=== PATIENT | female | born 1960 | race Caucasian/White ===

== ENCOUNTER 2018-10-08 08:55 | Outpatient (CLI) | payer OTHER, SELFPAY ==
[2018-10-08 09:25] LABS: HCT 43.4 % (36.0-46.0); HGB 14.3 g/dL (12.0-15.5); Mean Corp. HGB Concentration 32.9 g/dL (32.0-36.0); Mean Corpuscular Volume 93.9 fL (80-95); Mean Platelet Volume 10.4 fL (8.0-11.0); Platelet Count 265 x1000/uL (130-400); RBC 4.62 m/cumm (4.00-5.20); RBC Distribution Width 13.2 % (11.7-14.6); White Blood Cell Count 6.83 k/cumm (4.4-10.8)
[2018-10-08 10:22] LABS: ALT 46 U/L (12-78); AST 19 U/L (15-37); Albumin 3.5 g/dL (3.4-5.0); Alkaline Phosphatase 59 U/L (46-116); Anion Gap 8.7 mmol/L (3-11); BUN 19 mg/dL (7-18); Bilirubin, Total 0.3 mg/dL (0.2-1.0); CO2 29.3 mmol/L (21.0-32.0); CREATININE 0.76 mg/dL (0.55-1.02); Calcium 9.1 mg/dL (8.5-10.1); Chloride 105 mmol/L (98-107); Cholesterol 192 mg/dL (50-200); Glucose 91 mg/dL (70-100); HDL Cholesterol 47 mg/dL (40-60); LDL CHOLESTEROL 127 mg/dL (<100); Potassium 4.2 mmol/L (3.5-5.1); Sodium 143 mmol/L (136-145); TSH (W/Ref FT4) 1.36 uIU/mL (0.358-3.74); Total Protein 6.8 g/dL (6.4-8.2); Triglyceride 107 mg/dL (30-150)
== END 2018-10-08 09:15 ==
PROVIDERS: PCP Internal Medicine; Visit Provider Internal Medicine
DX: E03.9 Hypothyroidism, unspecified (principal)
CPT/HCPCS: 36415; 80053; 80061; 83721; 85027; 84443

== ENCOUNTER 2018-11-23 08:32 | Outpatient (CLI) | payer OTHER, SELFPAY ==
--- NOTE | 2018-11-23 08:32 | DI.RAD_ITS ---
SYMPTOMS/DIAGNOSIS: S/P BILATERAL TKA; LEFT SHOULDER PAIN RIGHT KNEE: Two views. Comparison is 05/09/16. There are again seen postsurgical changes of a right total knee replacement. The hardware shows no evidence of failure. The bones are intact. IMPRESSION: Stable right TKR. LEFT KNEE: Two views. Comparison is 05/09/16. There are stable changes of a left total knee replacement. No evidence of hardware failure is seen. The bones are intact. IMPRESSION: Stable left TKR. LEFT SHOULDER: Three views. No acute fracture or dislocation is seen. The glenohumeral joint appears well maintained. There are mild hypertrophic changes seen at the acromioclavicular joint and the greater tuberosity. The bones are intact. The soft tissues are unremarkable. IMPRESSION: Mild degenerative changes of the left shoulder.
== END 2018-11-23 08:52 ==
PROVIDERS: PCP Internal Medicine; Visit Provider Student in an Organized Health Care Education/Training Program
DX: M25.512 Pain in left shoulder (principal); M19.012 Primary osteoarthritis, left shoulder; Z96.653 Presence of artificial knee joint, bilateral
CPT/HCPCS: 73030; 73560

== ENCOUNTER 2019-04-22 09:13 | Outpatient (CLI) | payer OTHER, SELFPAY ==
[2019-04-22 11:00] LABS: TSH (W/Ref FT4) 1.34 uIU/mL (0.358-3.74)
== END 2019-04-22 09:33 ==
PROVIDERS: PCP Internal Medicine; Visit Provider Internal Medicine
DX: E03.9 Hypothyroidism, unspecified (principal); I10 Essential (primary) hypertension
CPT/HCPCS: 36415; 84443

== ENCOUNTER 2019-11-20 01:32 | Outpatient (CLI) | payer OTHER, SELFPAY ==
--- NOTE | 2019-11-20 08:15 | DI.MAMMO_ITS ---
EXAM: MG MAMMO SCREENING CLINICAL HISTORY: SCREENING, Z12.39. TECHNIQUE: Bilateral full field digital CC and MLO mammographic images were obtained with 3D tomosyn thesis and utilizing computer aided detection (CAD). COMPARISON: Available for comparison. FINDINGS: Masses/Architectural Distortion: None seen. Microcalcifications: No suspicious pleomorphic-type are seen. Skin Thickening/Nipple Retraction: None. IMPRESSION: 1. No significant interval change with no specific features of malignancy noted. 2. Unless there is more urgent need, screening mammography is recommended, as per [employer] guidelines. ACR BI-RAD Category- 1 Negative Breast Density - Category B - Scattered areas of fibroglandular density A negative radiographic report should not delay biopsy if a dominant or clinically suspicious mass is present. Up to ten percent of cancers are not identified on mammography. A negative report may reinforce clinical impression. Adenosis and dense breasts may obscure an underlying neoplasm. False positive reports average 6 to 10%. Patient will receive a letter notifying them of these results.
== END 2019-11-20 01:52 ==
PROVIDERS: PCP Internal Medicine; Visit Provider Internal Medicine
DX: Z12.31 Encounter for screening mammogram for malignant neoplasm of breast (principal)
CPT/HCPCS: 77063; 77067

== ENCOUNTER 2019-12-16 13:41 | Outpatient (CLI) | payer OTHER, SELFPAY ==
--- NOTE | 2019-12-16 08:00 | DI.RAD_ITS ---
EXAM: XR KNEE RT 2V AP,LAT INDICATION: s/p TKA. COMPARISON: XR knee RT 2V AP,lat from 11/23/2018 TECHNIQUE: 2D digital imaging was performed. FINDINGS: There are stable postsurgical changes of a right total knee replacement. There is no evidence of garth dware failure. The bones are intact. The soft tissues are unremarkable. IMPRESSION: Stable right TKR.
--- NOTE | 2019-12-16 08:00 | DI.RAD_ITS ---
EXAM: XR KNEE LT 2V AP,LAT INDICATION: f/u TKA. COMPARISON: XR knee LT 2V AP,lat from 11/23/2018 TECHNIQUE: 2D digital imaging was performed. FINDINGS: There are postsurgical changes again seen of a left total knee replacement. The orthopedic hardware appears stable. The bones are intact. The soft tissues are unremarkable. IMPRESSION: Stable left TKR.
== END 2019-12-16 14:01 ==
PROVIDERS: PCP Internal Medicine; Visit Provider Physician Assistant
DX: Z96.653 Presence of artificial knee joint, bilateral (principal); Z47.1 Aftercare following joint replacement surgery
CPT/HCPCS: 73560

== ENCOUNTER 2020-04-21 08:58 | Outpatient (REF) | payer OTHER, SELFPAY ==
[2020-04-21 17:28] LABS: CREATININE 0.97 mg/dL (0.55-1.02); Estimated GFR 58.38 (mL/min/1.73m2); Potassium 4.1 mmol/L (3.5-5.1); TSH 1.28 uIU/mL (0.36-3.74)
== END 2020-04-21 09:18 ==
LOC: LBN 08:58
PROVIDERS: PCP Nurse Practitioner; Visit Provider Nurse Practitioner
DX: I10 Essential (primary) hypertension (principal); E03.9 Hypothyroidism, unspecified
CPT/HCPCS: 82565; 84132; 84443

== ENCOUNTER 2020-06-09 07:48 | Outpatient (CLI) | payer OTHER, SELFPAY ==
[2020-06-10 14:37] LABS: COVID-19 RT-PCR Result NEGATIVE (Negative)
== END 2020-06-09 08:08 ==
PROVIDERS: PCP Nurse Practitioner; Visit Provider Surgery
DX: Z01.818 Encounter for other preprocedural examination (principal)
CPT/HCPCS: U0003

== ENCOUNTER 2020-06-12 06:58 | Day surgery (SDC) | payer OTHER, SELFPAY ==
[2020-06-12 07:17] VITALS: BP 139/82; PULSE 95; RESP 16; TEMP 36.3; O2SAT 93
[2020-06-12] MEDS: Lactated Ringers 1,000 ML 80 ML IV (07:39)
--- NOTE | 2020-06-12 07:55 | W.PM.DSUDISC ---
Discharge Plan Disposition Patient Disposition: HOME Condition: Good Discharge Details Reason For Visit: Colonoscopy Attending Provider: Reba Ramsey Primary Care Provider: Hayde Anthony Home Meds and New Rx's Prescriptions: Continued lisinopril 10 mg tablet 10 mg PO DAILY Qty: 90 RF: 4 hydrochlorothiazide 12.5 mg tablet 12.5 mg PO DAILY Qty: 90 RF: 4 fluticasone propionate 50 mcg/actuation spray,suspension 1 spray NS DAILY Qty: 3 RF: 3 fluoxetine 20 mg tablet 20 mg PO DAILY Qty: 90 RF: 3 CENTRUM TABLET 1 EACH tablet 1 ea PO DAILY RF: 0 amoxicillin 500 MG capsule 500 mg PO ONCE Qty: 4 RF: 1 melatonin 10 MG tablet 10 mg PO DAILY RF: 0 Fish Oil 1 EACH capsule 2 ea PO DAILY RF: 0 cholecalciferol (vitamin D3) [Vitamin D3] 2,000 UNIT capsule 4,000 unit PO DAILY RF: 0 metoprolol succinate 50 mg tablet extended release 24 hr 50 mg PO DAILY Qty: 90 RF: 3 levothyroxine 88 mcg tablet 88 mcg PO DAILY Qty: 90 RF: 4 acetaminophen [Tylenol] 325 MG tablet 650 mg PO Q4H PRN PRNRF: 0 Discharge Instructions Additional Instructions: Findings: Your colonoscopy was normal. Follow up: Plan for colonoscopy in 5 years due to history of polyps on prior colonoscopies. Please call if you develop: fevers >101.5 Nausea or Vomiting Abdominal pain that is not transient DAY SURGERY UNIT POST COLONOSCOPY INSTRUCTIONS 1. Because there will be medication in your system for the next 24 hours, you may feel a little sleepy. Your coordination will be affected. Therefore: a. Do not drive or operate dangerous equipment for 24 hours. b. Do not drink alcohol beverages for 24 hours (not even beer). c. Plan to go home and rest for the day. 2. Generally there are no restrictions on your activity after a day or so has gone by, but you may feel a bit fatigued for a few days. 3 After you arrive home you may have a light meal and return to a normal diet as you can tolerate it without feeling sick to your stomach. 4. After surgery, you may feel pain or discomfort. This should be only transient, but if it persists please contact your doctor. 5. If there are any questions regarding the findings of your procedure, please feel free to contact your doctor. 6. If you are unable to contact your doctor with a problem, contact the hospital at [phone]. 7. Continue all your regular medications unless directed otherwise. I understand the above instructions and have no questions. Signature of Patient or Responsible Adult Escort Date/Time Name of Responsible Adult Escort Signature of Nurse Date/Time Activity:: Activity as Tolerated Diet:: As Tolerated Discharge Orders Discharge Orders: Discharge Order (Routine); Ordered 06/12/20 Ordered By: Reba Ramsey DS: Diagnosis Discharge Diagnosis (1) History of colon polyps: Status: Acute
--- NOTE | 2020-06-12 07:56 | W.COLOREPORT ---
Date of service: 06/12/20 Time of Service: 08:41 Colonoscopy Report Date of procedure: 06/12/20 Pre-op diagnosis general: History of colon polyps Post-op diagnosis procedure note: other (Normal colon) Procedure: Colonoscopy Surgeon: Reba Ramsey Anesthesia proc note operative: MAC Indications: This 60 year old patient presents for routine colonoscopy. She had polyps removed in 2014 and 2009. No symptoms or FH colon cancer. Procedure Description: The patient was placed in the left Lang position. Propofol was titrated to sedation. Digital rectal examination revealed no abnormalities. The scope was advanced to the cecum without difficulty. The ileocecal valve and appendiceal orifice were clearly identified. The prep was good. The scope was slowly withdrawn over the course of greater than 6 minutes with no abnormalities seen in the ascending, transverse, descending, sigmoid colon or rectum including on retroflexed view. The patient tolerated the procedure well and was stable to recovery. Plan for routine screening colonoscopy in 5 years due to a history of polyps.
[2020-06-12 09:13] VITALS: BP 124/75; PULSE 71; RESP 16; TEMP 36.6; O2SAT 99
== END 2020-06-12 09:30 | disposition home or self-care (01) ==
PROVIDERS: PCP Nurse Practitioner; Visit Provider Surgery
PROC: 0DJD8ZZ Inspection of Lower Intestinal Tract, Via Natural or Artificial Opening Endoscopic (ICD-10-PCS; CPT 45378; principal; 2020-06-12 08:15)
DX: Z12.11 Encounter for screening for malignant neoplasm of colon (principal); Z86.010 Personal history of colon polyps
CPT/HCPCS: 45378

== ENCOUNTER 2020-11-24 02:33 | Outpatient (CLI) | payer OTHER, SELFPAY ==
--- NOTE | 2020-11-24 07:45 | DI.MAMMO_ITS ---
EXAM: MAMMO SCREENING CLINICAL HISTORY: screening,Z12.39 TECHNIQUE: Mammograms were interpreted according to the usual protocol including computer analysis w [employer] CAD system, tomosynthesis and C-view imaging. COMPARISON: 2010 through 2019 FINDINGS: The breasts are composed of scattered fibroglandular densities, Breast Density category B. No suspicious masses or suspicious microcalcifications are seen. No skin thickening or abnormal axillary lymph nodes are seen. There has been no significant change from prior exams. IMPRESSION: BI-RADS Category 1, Negative mammogram Yearly screening mammography is recommended. Breast Density - Category B, scattered fibroglandular densities. A negative radiographic report should not delay biopsy if a dominant or clinically suspicious mass is present. Up to ten percent of cancers are not identified on mammography. A negative report may reinforce clinical impression. Adenosis and dense breasts may obscure an underlying neoplasm. False positive reports average 6 to 10%. Patient will receive a letter notifying them of these results.
== END 2020-11-24 02:53 ==
PROVIDERS: PCP Nurse Practitioner; Visit Provider Nurse Practitioner
DX: Z12.31 Encounter for screening mammogram for malignant neoplasm of breast (principal)
CPT/HCPCS: 77063; 77067

== ENCOUNTER 2021-11-25 02:37 | Outpatient (CLI) | payer OTHER, SELFPAY ==
--- NOTE | 2021-11-25 11:10 | DI.MAMMO_ITS ---
Exam(s) MAMMO SCREENING EXAM: MAMMO SCREENING CLINICAL HISTORY: screening,Z12.39 TECHNIQUE: Bilateral full field digital CC and MLO mammographic images were obtained with 3D tomosyn thesis and utilizing computer aided detection (CAD). COMPARISON: Available for comparison. FINDINGS: Masses/Architectural Distortion: None seen. There are few stable nodular densities in the breasts. Microcalcifications: No suspicious pleomorphic-type are seen. Skin Thickening/Nipple Retraction: None. IMPRESSION: 1. No significant interval change with no specific features of malignancy noted. 2. Unless there is more urgent need, screening mammography is recommended, as per [employer] guidelines. BI-RADS Category 1 - Negative Breast Density - Category B - Scattered areas of fibroglandular density Breast density category C or D implies that the patient has dense breast tissue. Dense breast tissue is very common and is not abnormal but dense breast tissue can make it harder to find cancer on a ma mmogram. Also, dense breast tissue may increase their breast cancer risk. This information about the result of the mammogram report was provided to the patient to raise their awareness. Use this report when you speak with the patient about their risks for breast cancer, which includes their family hist ory. At that time, you may recommend for more screening tests (Ultrasound or MRI) as they might be us eful based on their risk. A negative radiographic report should not delay biopsy if a dominant or clinically suspicious mass is present. Up to ten percent of cancers are not identified on mammography. A negative report may reinforce clinical impression. Adenosis and dense breasts may obscure an underlying neoplasm. False positive reports average 6 to 10%. Patient will receive a letter notifying them of these results.
== END 2021-11-25 02:57 ==
PROVIDERS: PCP Nurse Practitioner; Visit Provider Nurse Practitioner
DX: Z12.31 Encounter for screening mammogram for malignant neoplasm of breast (principal)
CPT/HCPCS: 77063; 77067

== ENCOUNTER 2022-04-05 01:38 | Outpatient (CLI) | payer OTHER, SELFPAY ==
[2022-04-05 08:56] LABS: Hemoglobin A1C 5.6 % (<5.7)
[2022-04-05 10:20] LABS: Anion Gap 7.2 mmol/L (3-11); BUN 22 mg/dL (7-18); CO2 30.8 mmol/L (21.0-32.0); CREATININE 0.7 mg/dL (0.55-1.02); Calcium 9.1 mg/dL (8.5-10.1); Calculated LDL 155 mg/dL (<100); Chloride 104 mmol/L (98-107); Cholesterol 220 mg/dL (<200); Glucose 102 mg/dL (74-106); HDL Cholesterol 54 mg/dL (40-60); Potassium 4.5 mmol/L (3.5-5.1); Sodium 142 mmol/L (136-145); TSH (W/Ref FT4) 2.34 uIU/mL (0.36-3.74); Triglyceride 58 mg/dL (<150)
== END 2022-04-05 01:39 | disposition home or self-care (01) ==
LOC: LBO 01:38
PROVIDERS: PCP Nurse Practitioner; Visit Provider Nurse Practitioner
DX: I10 Essential (primary) hypertension (principal); E03.9 Hypothyroidism, unspecified; Z13.6 Encounter for screening for cardiovascular disorders; Z13.1 Encounter for screening for diabetes mellitus
CPT/HCPCS: 36415; 80048; 80061; 83036; 84443

== ENCOUNTER 2022-11-22 15:51 | Outpatient (REF) | payer OTHER, SELFPAY ==
--- NOTE | 2022-11-22 15:17 | PAPFT_PTH ---
PATIENT: Oumou Schulz LOC: [place] U#:[id number] AGE/SX: 62/F ROOM: RE11/22/[address]: Maria Esther Vaca MD : 1960 BED: DIS: 11/22/2022 SPEC #: [id number] RECD: 11/22/22 18:10 STATUS: FAM REViji #: [id number] RICKY: 11/22/22 15:[address]: Maria Esther Vaca DEPT: [facility] Cytology RECD BY: Sonia Ritter ENTERED: 11/22/22 18:11 SP TYPE: PAPFT OTHR DR: Rosio Menezes, MANAGER BUSINESS Tissues: 1 - CX/ENDOCX FOR PAP SMEARS Procedures: PAP THIN PREP/UVM Screening HPV DNA PROBE Comments: [id number]
== END 2022-11-22 15:52 | disposition home or self-care (01) ==
LOC: LBN 15:51
PROVIDERS: PCP Nurse Practitioner Family; Visit Provider Obstetrics & Gynecology
DX: Z12.4 Encounter for screening for malignant neoplasm of cervix (principal); Z11.51 Encounter for screening for human papillomavirus (HPV)
CPT/HCPCS: 88142; 87624

== ENCOUNTER 2022-12-06 02:43 | Outpatient (CLI) | payer OTHER, SELFPAY ==
--- NOTE | 2022-12-06 07:30 | DI.MAMMO_ITS ---
Exam(s) MAMMO SCREENING EXAM: MAMMO SCREENING CLINICAL HISTORY: screening,z12.39. TECHNIQUE: Bilateral full field digital CC and MLO mammographic images were obtained with 3D tomosyn thesis and utilizing computer aided detection (CAD). COMPARISON: Prior mammograms were reviewed. FINDINGS: There has been no significant change in the appearance and distribution of the fibroglandular tissue. No new significant findings in the right breast. The left breast there is an oval noncalcified well-defined nodule on the MLO view located approximate ly 10 cm in from the nipple, measuring 5 x 4 millimeters, more prominent than on prior studies. Spot compression and ultrasound recommended. There are no malignant-appearing microcalcification groups in this region or elsewhere in either [address]. There is no significant architectural distortion nor skin thickening-retraction. IMPRESSION: 1. No radiographic evidence of malignancy in the right breast. 2. Breast asymmetric density-possible nodule. Spot compression MLO view and ultrasound recommended. BI-RADS Category 0 - Assessment Incomplete: Need additional imaging evaluation Breast Density - Category B - Scattered areas of fibroglandular density Breast density Category C or D implies that the patient has dense breast tissue. Dense breast tissue can make it harder to find cancer on a mammogram. Dense breast tissue is also associated with an incr eased risk of breast cancer. This information about the result of the mammogram report was provided to the patient to raise their awareness. Use this report when you speak with the patient about their risks for breast cancer, which includes their family history. At that time, you may recommend additional screening tests (Ultrasoun d or MRI) as these tests may add significant information. A negative radiographic report should not delay biopsy if a dominant or clinically suspicious mass is present. Up to ten percent of cancers are not identified on mammography. A negative report may reinforce clinical impression. Adenosis and dense breasts may obscure an underlying neoplasm. False positive reports average 6 to 10%. Patient will receive a letter notifying them of these results.
== END 2022-12-06 03:03 ==
LOC: DI 02:43
PROVIDERS: PCP Nurse Practitioner Family; Visit Provider Nurse Practitioner Family
DX: Z12.31 Encounter for screening mammogram for malignant neoplasm of breast (principal); R92.8 Other abnormal and inconclusive findings on diagnostic imaging of breast
CPT/HCPCS: 77063; 77067

== ENCOUNTER 2022-12-08 01:16 | Outpatient (CLI) | payer OTHER, SELFPAY ==
--- NOTE | 2022-12-08 | DI.MAMMO_ITS ---
Exam(s) MG MAMMO SCREEN CALL BACK UNI US BREAST LT COMPLETE EXAM: MG MAMMO SCREEN CALL BACK UNI- LEFT AND COMPLETE LEFT BREAST ULTRASOUND CLINICAL HISTORY: F/U MAMMO, R92.8,NODULE. TECHNIQUE: Unilateral spot mammographic images obtained with 3D tomosynthesisand utilizing computer aided detection (CAD). . Complete breast Ultrasound was also performed, including all 4 quadrants, the retroareolar region, a nd the ipsilateral axilla. COMPARISON: Prior mammograms were reviewed. This additional imaging was performed due to findings described on the recent screening mammogram of 12/06/2022. FINDINGS: DIAGNOSTIC MAMMOGRAM: Additional mammographic views performed todaydoes not dissipate this nodule and therefore proceeded w ith ultrasound. COMPLETE LEFT BREAST ULTRASOUND: Ultrasound performed today reveals 2 findings at the 1 o'clock position. There is a benign lipoma which measures 1.8 x 0.7 cm. This is not clinically significant. In addition, there is a small microcyst measuring 4 x 3 millimeters. This probably corresponds to th e nodule on the mammogram. There are no other focal ultrasound findings in all 4 quadrants of the left breast. Scanning of the ipsilateral left axilla reveals no significant adenopathy. IMPRESSION: 1. Benign-appearing left breast findings on mammogram and ultrasound as described above. Appropriate follow-up as discussed by myself with the patient today is repeat left breast mammogram a nd ultrasound in 6 months to ensure stability.. The patient was informed of these findings and recommendations prior to leaving the department today. BI-RADS Category 3 - 6 month - Probably Benign Finding: Recommend follow-up mammography in 6 months Breast Density - Category B - Scattered areas of fibroglandular density Breast density Category C or D implies that the patient has dense breast tissue. Dense breast tissue can make it harder to find cancer on a mammogram. Dense breast tissue is also associated with an incr eased risk of breast cancer. This information about the result of the mammogram report was provided to the patient to raise their awareness. Use this report when you speak with the patient about their risks for breast cancer, which includes their family history. At that time, you may recommend additional screening tests (Ultrasoun d or MRI) as these tests may add significant information. A negative radiographic report should not delay biopsy if a dominant or clinically suspicious mass is present. Up to ten percent of cancers are not identified on mammography. A negative report may reinforce clinical impression. Adenosis and dense breasts may obscure an underlying neoplasm. False positive reports average 6 to 10%. Patient will receive a letter notifying them of these results.
== END 2022-12-08 01:36 ==
LOC: DI 01:16
PROVIDERS: PCP Nurse Practitioner Family; Visit Provider Nurse Practitioner Family
DX: R92.8 Other abnormal and inconclusive findings on diagnostic imaging of breast (principal); Z12.31 Encounter for screening mammogram for malignant neoplasm of breast
CPT/HCPCS: 76642; 77063; 77067

== ENCOUNTER → 2023-06-16 00:03 | Outpatient (CLI) | payer OTHER, SELFPAY ==
--- NOTE | 2023-06-16 07:45 | DI.US_ITS ---
Exam(s) US BREAST LT COMPLETE MG MAMMO DIAGNOSTIC UNI EXAM: MG MAMMO DIAGNOSTIC UNI-LEFT AND COMPLETE LEFT BREAST ULTRASOUND CLINICAL HISTORY: 6 month follow up,R92.8. TECHNIQUE: Unilateral left breast CC AND MLO mammographic images were obtained with 3D tomosynthesis technique and utilizing computer aided detection (CAD). Complete breast ultrasound performed including all 4 quadrants as well as the axillary region. COMPARISON: Prior mammograms were reviewed, the most recent being 12/06/2022. Prior ultrasound at that time was also reviewed. FINDINGS: DIAGNOSTIC LEFT BREAST MAMMOGRAM: Previously described left breast nodule is unchanged. Also suggestion of 2nd nodule evident. Proceeded with ultrasound... COMPLETE LEFT BREAST ULTRASOUND: Previously present 1 o'clock position benign microcyst is again noted, measuring 4 x 3 mm, unchanged. Previously described nearby benign lipoma at 1 o'clock position is also again noted. At the 4 o'clock position there is a new 3 millimeter microcyst. This probably corresponds to the 2n d finding on the mammogram. At the 11 o'clock position there is another benign lipoma noted. Most importantly, there are no solid lesions seen in all 4 quadrants of the left breast. Scanning of the left axilla is negative for significant adenopathy. IMPRESSION: Benign left breast findings as described above. Appropriate follow-up is to keep this patient on her yearly mammogram schedule, this implying that he r next bilateral mammogram would be in 6 months, with earlier imaging if a self detected breast ba e is noted.. The patient was informed of the findings and follow-up recommendations by myself prior to leaving the department today. BI-RADS Category 3 - 6 month - Probably Benign Finding: Recommend follow-up mammography in 6 months Breast Density - Category B - Scattered areas of fibroglandular density Breast density Category C or D implies that the patient has dense breast tissue. Dense breast tissue can make it harder to find cancer on a mammogram. Dense breast tissue is also associated with an incr eased risk of breast cancer. This information about the result of the mammogram report was provided to the patient to raise their awareness. Use this report when you speak with the patient about their risks for breast cancer, which includes their family history. At that time, you may recommend additional screening tests (Ultrasoun d or MRI) as these tests may add significant information. A negative radiographic report should not delay biopsy if a dominant or clinically suspicious mass is present. Up to ten percent of cancers are not identified on mammography. A negative report may reinforce clinical impression. Adenosis and dense breasts may obscure an underlying neoplasm. False positive reports average 6 to 10%. Patient will receive a letter notifying them of these results.
== END ==
PROVIDERS: PCP Nurse Practitioner Family; Visit Provider Nurse Practitioner Family
DX: R92.8 Other abnormal and inconclusive findings on diagnostic imaging of breast (principal); Z09 Encounter for follow-up examination after completed treatment for conditions other than malignant neoplasm; Z12.31 Encounter for screening mammogram for malignant neoplasm of breast
CPT/HCPCS: 76642; 77061; 77065; G0279

== ENCOUNTER 2023-11-20 10:50 | Outpatient (CLI) | payer OTHER, SELFPAY ==
[2023-11-20 12:26] LABS: HCT 45.3 % (36.0-46.0); MCH 30.8 pg (27.0-33.0); MCHC 33.1 % (32.0-36.0); MCV 93 fL (80-95); MPV 10.8 fL (8.0-11.0); Platelet Count 300 10^3/uL (130-400); RBC 4.87 10^6/uL (3.93-5.22); RDW 12.8 % (11.7-14.6); RDW-SD 43.7 fL
[2023-11-20 12:42] LABS: ALT 42 U/L (14-59); AST 21 U/L (15-37); Albumin 3.8 g/dL (3.4-5.0); Alkaline Phosphatase 61 U/L (46-116); Anion Gap 5.8 mmol/L (3-11); BUN 12 mg/dL (7-18); Bilirubin, Total 0.5 mg/dL (0.2-1.0); CO2 31.2 mmol/L (21.0-32.0); CREATININE 0.8 mg/dL (0.55-1.02); Calcium 8.9 mg/dL (8.5-10.1); Calculated LDL 125 mg/dL (<100); Chloride 104 mmol/L (98-107); Cholesterol 201 mg/dL (<200); Estimated GFR 82.23 (mL/min/1.73m2); Glucose 123 mg/dL (74-106); HDL Cholesterol 52 mg/dL (40-60); Potassium 3.8 mmol/L (3.5-5.1); Sodium 141 mmol/L (136-145); TSH (W/Ref FT4) 1.99 uIU/mL (0.36-3.74); Total Protein 7.8 g/dL (6.4-8.2); Triglyceride 123 mg/dL (<150)
[2023-11-20 12:52] LABS: Hemoglobin A1C 5.8 % (<5.7)
== END 2023-11-20 10:51 | disposition home or self-care (01) ==
LOC: LOS 10:50
PROVIDERS: PCP Nurse Practitioner Family; Referring Provider Nurse Practitioner Family; Visit Provider Nurse Practitioner Family
DX: E03.9 Hypothyroidism, unspecified (principal); E66.9 Obesity, unspecified; F32.9 Major depressive disorder, single episode, unspecified; G47.33 Obstructive sleep apnea (adult) (pediatric); Z00.00 Encounter for general adult medical examination without abnormal findings
CPT/HCPCS: 36415; 80053; 80061; 85027; 83036; 84443

== ENCOUNTER → 2023-12-18 04:05 | Outpatient (CLI) | payer OTHER, SELFPAY ==
--- NOTE | 2023-12-18 07:15 | DI.MAMMO_ITS ---
Exam(s) MAMMO DIAGNOSTIC BI EXAM: MAMMO DIAGNOSTIC BI CLINICAL HISTORY: 3-6 MO F/U,f/u abnl mammo, r92.8,z09 TECHNIQUE: Bilateral full field digital CC and MLO mammographic images were obtained with 3D tomosyn thesis and utilizing computer aided detection (CAD). COMPARISON: Available for comparison. FINDINGS: Masses/Architectural Distortion: Stable left breast nodule. No new nodules. No areas of architectur al distortion. Microcalcifications: No suspicious pleomorphic-type are seen. Skin Thickening/Nipple Retraction: None. IMPRESSION: 1. No significant interval change with no specific features of malignancy noted. 2. Unless there is more urgent need, screening mammography is recommended, as per [employer] guidelines. 3. Findings were discussed with the patient on the date of the examination. BI-RADS Category 2 - Benign Findings Breast Density - Category B - Scattered areas of fibroglandular density Breast density category C or D implies that the patient has dense breast tissue. Dense breast tissue is very common and is not abnormal but dense breast tissue can make it harder to find cancer on a ma mmogram. Also, dense breast tissue may increase their breast cancer risk. This information about the result of the mammogram report was provided to the patient to raise their awareness. Use this report when you speak with the patient about their risks for breast cancer, which includes their family hist ory. At that time, you may recommend for more screening tests (Ultrasound or MRI) as they might be us eful based on their risk. A negative radiographic report should not delay biopsy if a dominant or clinically suspicious mass is present. Up to ten percent of cancers are not identified on mammography. A negative report may reinforce clinical impression. Adenosis and dense breasts may obscure an underlying neoplasm. False positive reports average 6 to 10%. Patient will receive a letter notifying them of these results.
== END ==
PROVIDERS: PCP Nurse Practitioner Family; Visit Provider Nurse Practitioner Family
DX: Z09 Encounter for follow-up examination after completed treatment for conditions other than malignant neoplasm (principal); R92.8 Other abnormal and inconclusive findings on diagnostic imaging of breast
CPT/HCPCS: 77062; 77066; G0279

== ENCOUNTER 2024-08-23 16:30 | Emergency (ER) | payer MEDICARE, SELFPAY ==
[2024-08-23] VITALS (17 sets, daily range): BP systolic 106–140; BP diastolic 53–75; PULSE 86–91; RESP 24; TEMP 37.9; O2SAT 88–99
--- NOTE | 2024-08-23 16:30 | DI.CT_ITS ---
Exam(s) CT HEAD WO EXAM: CT HEAD WO CLINICAL HISTORY: Dizziness. TECHNIQUE: Imaging Protocol: Axial computed tomography images with coronal and sagittal reformatted images were created and reviewed COMPARISON: CT HEAD WITHOUT CONTRAST from 02/20/2015 FINDINGS: Ventricles and Extra axial spaces: Normal in size and morphology for the patient's age. Hemorrhage: None. Cerebral parenchyma: No evidence of an acute territorial infarct. There are subtle areas of decrease d attenuation in the white matter likely reflecting small vessel ischemic disease. No mass effect is identified. Midline shift: None. Brainstem/Cerebellum: Normal. Calvarium: Normal. Visualized Paranasal sinuses/Mastoids: Clear. Soft Tissues: Unremarkable. IMPRESSION: No acute intracranial process. RADIATION DOSE DELIVERED: 915.28mGy.cm Total DLP DATA REPOSITORY: All CT scans at this facility are submitted to the National Radiology Data Registry (NRDR) Dose Index Registry (DIR) with the [employer] (A[employer]). RADIATION OPTIMIZATION: All CT scans at this facility use at least one of these dose optimization te chniques: automated exposure control; mA and/or kV adjustment per patient size (includes targeted exa ms where dose is matched to clinical indication); or iterative reconstruction.
--- NOTE | 2024-08-23 16:35 | DI.RAD_ITS ---
Exam(s) XR CHEST 1V IN DI DEPT EXAM: XR CHEST 1V IN DI DEPT CLINICAL HISTORY: Fever, Fall TECHNIQUE: 2D digital imaging was performed of the chest. One image was obtained. An AP view was ob tained. COMPARISON: CR CHEST 2 VIEWS PA,LAT from 01/20/2011 FINDINGS: MEDIASTINUM: Normal. HEART: Normal. PULMONARY VASCULATURE: Normal. LUNGS: Clear. PLEURAL SPACE: No pleural effusion or pneumothorax. BONE:Within normal limits for the patient's age. OTHER FINDINGS:Normal. IMPRESSION: No acute pulmonary findings. DATA REPOSITORY: RADIATION DOSE DELIVERED:
--- NOTE | 2024-08-23 16:40 | ED.GENADUL_ITS ---
Discharge Plan Disposition Patient Disposition: Home Condition: Stable Discharge Details Clinical Impression: COVID-19 Primary Care Provider: Rosio Menezes ED Provider: Martha Urena Home Meds and New Rx's Prescriptions: New Paxlovid 300 mg (150 mg x 2)-100 mg tablets,dose pack See Rx Instructions .ROUTE .COMPLEX Qty: 30 0RF Rx Instructions: take TWO 150 mg tablets of nirmatrelvir with ONE 100 mg tablet of ritonavir twice daily for 5 days Continued CENTRUM TABLET 1 EACH tablet 1 ea PO DAILY Rx Instructions: WITH IRON melatonin 10 MG tablet 10 mg PO DAILY Fish Oil 1 EACH capsule 2 ea PO DAILY cholecalciferol (vitamin D3) [Vitamin D3] 2,000 UNIT capsule 4,000 unit PO DAILY hydrochlorothiazide 12.5 mg tablet 12.5 mg PO DAILY Qty: 90 4RF levothyroxine 88 mcg tablet 88 mcg PO DAILY Qty: 90 4RF lisinopril 10 mg tablet 10 mg PO DAILY Qty: 90 4RF metoprolol succinate 50 mg tablet extended release 24 hr 50 mg PO DAILY Qty: 90 4RF amoxicillin 500 mg capsule 500 mg PO ONCE Qty: 4 1RF Rx Instructions: 4 PILLS AT ONCE. fluticasone propionate 50 mcg/actuation spray,suspension 1 spray NS DAILY Qty: 3 3RF fluoxetine 40 mg capsule 40 mg PO DAILY Qty: 90 3RF acetaminophen [Tylenol] 325 MG tablet 650 mg PO Q4H PRN PRN0RF Discharge Instructions Instructions: COVID-19 in adults - Discharge instructions Additional Instructions: At this time you have tested positive for COVID 19. Please take the nausea medications as directed 20 to 30 minutes before eating or drinking anything. Please take the Paxlovid as directed. Please take Tylenol or Ibuprofen with food every 4-6 hours as needed for pain and swelling. Increase oral fluids. Please follow CDC guidelines regarding quarantine. Follow up with primary care provider in 3-5 days. Return to ED sooner if any worsening or concerns. Referrals: Rosio Menezes TUMBLER OPERATOR [Primary Care Provider] - 1 week HPI General Mode of arrival: EMS . Date/Time Provider Initiated Documentation: 08/23/24 16:33 . Limitations to Documentation: no limitations . Information obtained by: patient, EMS, RN notes reviewed and old records reviewed . HPI Narrative: 64 year old female presents to the ER with EMS cc of dizziness, N/V/D. Patient reports when she got up this am the room was spinning she slid down to the floor and then began N/V/D. Per EMS temperature of 102.5. Patient denies headache or LOC, did not hit her head. Denies abdominal pain. PMhx includes Obesity, Gerd, HtN, Hypothyroidisim and Sleep Apnea. Upon arrival she is A&O x 3 pleasant and conversing. Related Data Home Medications ?Medication ?Instructions ?Recorded ?Confirmed Centrum Tablet 1 ea PO DAILY 04/15/13 02/13/24 melatonin 10 mg tablet 10 mg PO DAILY 04/18/16 02/13/24 acetaminophen 325 mg tablet 650 mg (2 x 325 mg) PO Q4H PRN PRN 11/01/16 02/13/24 (Tylenol) cholecalciferol (vitamin D3) 50 4,000 unit PO DAILY 07/31/17 02/13/24 mcg (2,000 unit) capsule (Vitamin D3) omega-3 fatty acids-fish oil 340 2 ea PO DAILY 07/31/17 02/13/24 mg-1,000 mg capsule (Fish Oil) amoxicillin 500 mg capsule 500 mg PO ONCE #4 caps 05/04/24 hydrochlorothiazide 12.5 mg tablet 12.5 mg PO DAILY #90 tab-caps 05/04/24 levothyroxine 88 mcg tablet 88 mcg PO DAILY #90 tab-caps 05/04/24 lisinopril 10 mg tablet 10 mg PO DAILY #90 tab-caps 05/04/24 metoprolol succinate 50 mg 50 mg PO DAILY #90 tabs 05/04/24 tablet,extended release 24 hr fluoxetine 40 mg capsule 40 mg PO DAILY #90 caps 07/08/24 fluticasone propionate 50 1 spray NS DAILY #3 grams 07/08/24 mcg/actuation nasal spray,suspension nirmatrelvir 300 mg (150 mg See Rx Instructions PO .COMPLEX 08/23/24 x2)-ritonavir 100 mg tablet,dose #30 dose pk pack (Paxlovid) Previous Rx's ?Medication ?Instructions ?Recorded acetaminophen 325 mg tablet 650 mg (2 x 325 mg) PO Q4H PRN PRN 11/01/16 (Tylenol) amoxicillin 500 mg capsule 500 mg PO ONCE #4 caps 05/04/24 hydrochlorothiazide 12.5 mg tablet 12.5 mg PO DAILY #90 tab-caps 05/04/24 levothyroxine 88 mcg tablet 88 mcg PO DAILY #90 tab-caps 05/04/24 lisinopril 10 mg tablet 10 mg PO DAILY #90 tab-caps 05/04/24 metoprolol succinate 50 mg 50 mg PO DAILY #90 tabs 05/04/24 tablet,extended release 24 hr fluoxetine 40 mg capsule 40 mg PO DAILY #90 caps 07/08/24 fluticasone propionate 50 1 spray NS DAILY #3 grams 07/08/24 mcg/actuation nasal spray,suspension nirmatrelvir 300 mg (150 mg See Rx Instructions PO .COMPLEX 08/23/24 x2)-ritonavir 100 mg tablet,dose #30 dose pk pack (Paxlovid) Allergies Allergy/AdvReac Type Severity Reaction Status Date / Time enviornmental Allergy Mild head Uncoded 11/20/23 10:05 congestion Review of Systems All systems reviewed & are unremarkable except as noted in HPI and below Constitutional Constitutional: Reports fatigue, Reports fever(s) and Reports weakness ENT Ears, Nose, Mouth, and Throat: Reports dizziness Gastrointestinal Gastrointestinal: Reports diarrhea, Reports nausea and Reports vomiting Neurologic Neurologic: Reports dizziness and Reports weakness Endocrine Endocrine: Reports fatigue Exam Narrative Exam Narrative: Constitutional: Alert and oriented x3. Appears stated age. Obese body habitus. Head: Normocephalic, no trauma. Eyes: Pupils PERRL, Red reflex noted, EOM's intact. Eyelids symmetrical without lesions, discharge, or swelling. ENT: Bilateral TM's WNL, External ear normal to inspection, no mastoid TTP, swelling, or erythema, Nasal turbinates WNL, no nasal discharge. Normal dentition, Posterior pharynx WNL, no exudate. Chest: RRR, Normal S1, S2, distal pulses intact. Resp: Lungs clear to auscultation bilaterally, no wheezes, rales, or rhonchi. Abdomen: Soft, non-distended, Normoactive bowel sounds all 4 quads. Musculoskeletal: Normal gait, Moves all 4 extremities without difficulty. Skin: No suspicious rashes or lesions. Capillary refill less than 2 sec. Neurologic: Cranial nerves II-XII intact. Alert and oriented x 3. Motor: No deficits noted. Sensory: Intact bilaterally all 4 extremities. Hematologic/Lymphatic: No ecchymosis, no lymphadenopathy. Course Lab/Test Results Lab/Test Results: 08/23/24 16:33 Blood Blood Culture - Pending 08/23/24 16:33 Blood Blood Culture - Pending Medical Decision Making 64 year old female presents to the ER with EMS cc of dizziness, N/V/D. Patient reports when she got up this am the room was spinning she slid down to the floor and then began N/V/D. Per EMS temperature of 102.5. Patient denies headache or LOC, did not hit her head. Denies abdominal pain. PMhx includes Obesity, Gerd, HtN, Hypothyroidisim and Sleep Apnea. Upon arrival she is A&O x 3 pleasant and conversing. Workup ordered including CBC CMP lactate blood cultures x 2, chest x-ray head CT Zofran liter fluid and Tylenol. Lactate elevated at 2.2, white blood cell count is 15.79, absolute neutrophils 14.92, glucose 137 magnesium slightly low at 1.6 COVID-positive. Due to patient's BMI and comorbidities she does qualify for Paxlovid. She is also within the window as her symptoms just started this morning. CT head shows no acute intracranial process. Chest x-ray shows no infiltrate Discussed results with patient who verbalized understanding. Prescription for Paxlovid given patient is not on a statin or any medications that are contraindicated at this time. Also given Zofran. Discussed strict return instructions home care and follow-up care she verbalized understanding. Patient was hemodynamically stable, and ambulatory without assistance here in the emergency department prior to discharge. This text was generated using [employer] system, please disregard any oddities of phrase or misspellings. Medical Records Medical records reviewed: Yes I reviewed the patient's medical records. Lab Data Lab results reviewed: Yes I reviewed the patient's lab results. Labs: 08/23/24 16:33 Blood Blood Culture - Pending 08/23/24 16:33 Blood Blood Culture - Pending Laboratory Tests Range/Units 08/23/24 08/23/24 16:37 16:40 WBC (4.4-10.8) 10^3/uL 15.79 H RBC (3.93-5.22) 10^6/uL 4.74 Hgb (11.2-15.7) g/dL 14.6 Hct (36.0-46.0) % 44.9 MCV (80-95) fL 95 MCH (27.0-33.0) pg 30.8 MCHC (32.0-36.0) % 32.5 RDW (11.7-14.6) % 13.1 Plt Count (130-400) 10^3/uL 221 MPV (8.0-11.0) fL 10.1 Immature Gran % % 0.6 Neutrophils % % 94.5 Lymphocytes % % 2.1 Monocytes % % 2.2 Eosinophils % % 0.3 Basophils % % 0.3 Nucleated RBC % (0.0-0.3) % 0.0 Absolute Neutrophils (1.2-6.7) 10^3/uL 14.92 H Absolute Lymphocytes (1.2-3.4) 10^3/uL 0.33 L Absolute Monocytes (0.1-0.8) 10^3/uL 0.35 Absolute Eosinophils (0.0-0.7) 10^3/uL 0.05 Absolute Basophils (0.0-0.2) 10^3/uL 0.05 VBG Lactate (0.6-1.4) mmol/L 2.2 H* Sodium (136-145) mmol/L 141 Potassium (3.5-5.1) mmol/L 4.1 Chloride (98-107) mmol/L 104 Carbon Dioxide (21.0-32.0) mmol/L 27.9 Anion Gap (3-11) mmol/L 9.1 BUN (7-18) mg/dL 18 Creatinine (0.55-1.02) mg/dL 1.0 Est GFR (CKD-EPI 2020) (mL/min/1.73m2) 62.52 Glucose (74-106) mg/dL 137 H Calcium (8.5-10.1) mg/dL 8.9 Magnesium (1.8-2.4) mg/dL 1.6 L Total Bilirubin (0.2-1.0) mg/dL 0.74 AST (15-37) U/L 13 L ALT (14-59) U/L 29 Alkaline Phosphatase (46-116) U/L 71 Troponin I (<or=51) ng/L 6 Total Protein (6.4-8.2) g/dL 7.6 Albumin (3.4-5.0) g/dL 3.6 COVID-19 Source Nasopharynx SARS-CoV-2 (PCR) (Negative) Positive A Influenza Type A (PCR) (Negative) Negative Influenza Type B (PCR) (Negative) Negative RSV (PCR) (Negative) Negative Quality:SDOH Health Related Social Needs: No Data to Display PFSH All Active Problems (Updated 08/23/24 @ 18:49 by Martha Urena NP) COVID-19 (Acute) Asymmetrical sensorineural hearing loss (Acute) Depressed (Chronic) Sensorineural hearing loss of both ears (Acute) Impairment of speech discrimination (Acute) Trochanteric bursitis, left hip (Acute) Obstructive sleep apnea (Chronic) Uses BIPAP Tubular adenoma of colon (Acute 10/19/15) Obesity (Chronic) Hypothyroidism (Chronic 04/22/13) Essential hypertension (Chronic 10/11/13) Medical History [place] (stress urinary incontinence, female) [place] (hard of hearing) History of colon polyps Tendinitis of left rotator cuff injected 11/23/2018 Carpal tunnel syndrome on both sides (05/27/15) surgery left 2014 Surgical History S/p bilateral myringotomy with tube placement History of tympanoplasty of left ear 1978-revision History of total right knee replacement (TKR) (~04/2014) History of total left knee replacement (TKR) (~04/2013) Family History Mother , 65 Essential hypertension Personal history of malignant neoplasm ENDOMETRIAL Hyperlipidemia Father , 91 Essential hypertension Diabetes Hyperlipidemia Brother Hyperlipidemia Essential hypertension Brother Essential hypertension Diabetes Hyperlipidemia Stroke Maternal Grandfather Hodgkin's disease Paternal Grandfather , 84 Heart disease Maternal Grandmother Renal cancer Paternal Grandmother No problems noted. Sister No problems noted. 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 Pets and animals: Yes Pets and animals: cat(s) Sexually active: No Do you think of yourself as: straight/heterosexual Current gender identity: female What is your relationship status?: How often do you talk on the phone with friends or family?: decline to answer How often do you get together with friends or relatives?: decline to answer How often do you attend tenriism or islam services?: decline to answer Do you belong to any clubs or organized social groups?: decline to answer Panel score (0-1 are the most socially isolated patients): 0 What type of physical activity do you participate in: none Cathy/Zoroastrianism: Samaritan Seatbelt use: always Drive intox or ride w/intox bus driver: No Water heater temp set <120 deg: Yes Working smoke detector in home: Yes Fire extinguisher in home: Yes Carbon monox detector in home: Yes Firearms in home: No Do you feel safe at home: Yes Additional Social history:
[2024-08-23 16:54] LABS: Abs Immature Grans 0.09 10^3/uL (0.0-0.06); Absolute Basophil Count 0.05 10^3/uL (0.0-0.2); Absolute Lymphocyte Count 0.33 10^3/uL (1.2-3.4); Absolute Monocyte Count 0.35 10^3/uL (0.1-0.8); Basophils % 0.3 %; Eosinophils % 0.3 %; HCT 44.9 % (36.0-46.0); HGB 14.6 g/dL (11.2-15.7); Immature Grans % 0.6 %; Lymphocytes % 2.1 %; MCH 30.8 pg (27.0-33.0); MCHC 32.5 % (32.0-36.0); MCV 95 fL (80-95); MPV 10.1 fL (8.0-11.0); Monocytes % 2.2 %; Neutrophils % 94.5 %; Platelet Count 221 10^3/uL (130-400); RBC 4.74 10^6/uL (3.93-5.22); RDW 13.1 % (11.7-14.6); RDW-SD 45.8 fL; WBC 15.79 10^3/uL (4.4-10.8)
[2024-08-23 16:56] LABS: Lactate 2.2 mmol/L (0.6-1.4)
[2024-08-23 16:59] LABS: Absolute Eosinophil Count 0.05 10^3/uL (0.0-0.7); Absolute Neutrophil Count 14.92 10^3/uL (1.2-6.7)
[2024-08-23 17:14] LABS: ALT 29 U/L (14-59); AST 13 U/L (15-37); Albumin 3.6 g/dL (3.4-5.0); Alkaline Phosphatase 71 U/L (46-116); Anion Gap 9.1 mmol/L (3-11); BUN 18 mg/dL (7-18); Bilirubin, Total 0.74 mg/dL (0.2-1.0); CO2 27.9 mmol/L (21.0-32.0); Calcium 8.9 mg/dL (8.5-10.1); Chloride 104 mmol/L (98-107); Estimated GFR 62.52 (mL/min/1.73m2); Glucose 137 mg/dL (74-106); Magnesium 1.6 mg/dL (1.8-2.4); Potassium 4.1 mmol/L (3.5-5.1); Sodium 141 mmol/L (136-145); Total Protein 7.6 g/dL (6.4-8.2); Troponin I 6 ng/L (<or=51)
[2024-08-23] MEDS: Normal Saline 1,000 ML 1000 ML IV (17:15)
[2024-08-23 17:35] LABS: Influenza A PCR Negative (Negative); Influenza B PCR Negative (Negative); RSV PCR Negative (Negative)
[2024-08-23 17:37] LABS: Source Nasopharynx
[2024-08-23 17:38] LABS: COVID-19 PCR Positive (Negative)
[2024-08-23] MEDS: ACETAMINOPHEN 1,000 MG/100 ML BAG 400 MG IVPB (18:00)
[2024-08-23] MEDS: Ondansetron 4 MG/2 ML VIAL IVP (18:00)
[2024-08-23] MEDS: Ondansetron O.D.T. 4 MG TABEF, 3 TABS/BTL PO (19:01)
== END 2024-08-23 19:03 | disposition home or self-care (01) ==
PROVIDERS: Emergency Provider Registered Nurse Emergency; PCP Nurse Practitioner Family
DX: U07.1 COVID-19 (principal); I10 Essential (primary) hypertension
CPT/HCPCS: 80053; 87040; 87637; 96361; 96365; 96375; 99285; 70450; 71045; 83605; 83735; 84484; 85025; 99284; J0131; J2405

== ENCOUNTER 2024-11-29 00:42 | Outpatient (CLI) | payer MEDICARE, SELFPAY ==
[2024-11-29 09:57] LABS: HCT 46.6 % (36.0-46.0); MCH 30.1 pg (27.0-33.0); MCHC 32.2 % (32.0-36.0); MCV 93 fL (80-95); MPV 10.4 fL (8.0-11.0); Platelet Count 310 10^3/uL (130-400); RBC 4.99 10^6/uL (3.93-5.22); RDW 13.2 % (11.7-14.6); RDW-SD 44.9 fL; WBC 7.76 10^3/uL (4.4-10.8)
[2024-11-29 10:06] LABS: Hemoglobin A1C 5.8 % (<5.7)
[2024-11-29 10:25] LABS: ALT 39 U/L (14-59); AST 18 U/L (15-37); Albumin 3.9 g/dL (3.4-5.0); Alkaline Phosphatase 86 U/L (46-116); Anion Gap 9.2 mmol/L (3-11); BUN 17 mg/dL (7-18); Bilirubin, Total 0.57 mg/dL (0.2-1.0); CO2 29.8 mmol/L (21.0-32.0); Calcium 10.1 mg/dL (8.5-10.1); Calculated LDL 134 mg/dL (<100); Chloride 104 mmol/L (98-107); Cholesterol 207 mg/dL (<200); Estimated GFR 62.52 (mL/min/1.73m2); Glucose 123 mg/dL (74-106); HDL Cholesterol 56 mg/dL (40-60); Potassium 4.3 mmol/L (3.5-5.1); Sodium 143 mmol/L (136-145); TSH (W/Ref FT4) 3.28 uIU/mL (0.36-3.74); Triglyceride 86 mg/dL (<150)
== END 2024-11-29 00:43 | disposition home or self-care (01) ==
PROVIDERS: PCP Nurse Practitioner Family; Visit Provider Nurse Practitioner Family
DX: I10 Essential (primary) hypertension (principal); Z00.00 Encounter for general adult medical examination without abnormal findings; E03.9 Hypothyroidism, unspecified; E66.01 Morbid (severe) obesity due to excess calories; Z68.43 Body mass index [BMI] 50.0-59.9, adult; F32.9 Major depressive disorder, single episode, unspecified; R73.03 Prediabetes; G47.33 Obstructive sleep apnea (adult) (pediatric)
CPT/HCPCS: 36415; 80053; 80061; 85027; 83036; 84443

== ENCOUNTER 2025-01-16 01:16 | Outpatient (CLI) | payer MEDICARE, SELFPAY ==
--- NOTE | 2025-01-16 07:15 | DI.DEXA_ITS ---
Exam(s) XR DEXA BONE DENSITY W/WO CATRACHITO EXAM: XR DEXA BONE DENSITY W/WO CATRACHITO CLINICAL HISTORY: screening for osteoporosis in postmenopausal woman,z78.0 TECHNIQUE: Examination limited by patient body habitus. COMPARISON: No exams were available for comparison FINDINGS: Lateral Spine Image: Unremarkable. No compression deformities identified. Left hip: Total T-Score: 1.2 Total Z-Score: 2.5 T- and Z-scores: Within normal limits. Lumbar Spine: Total T-Score: 1.6 Total Z-Score: 3.3 T- and Z-scores: Within normal limits. IMPRESSION: No evidence of osteoporosis.
--- NOTE | 2025-01-16 11:59 | DI.MAMMO_ITS ---
Exam(s) MAMMO SCREENING EXAM: MAMMO SCREENING CLINICAL HISTORY: screening,z12.39 TECHNIQUE: Mammograms were interpreted according to the usual protocol including computer analysis w [employer] CAD system, tomosynthesis and C-view imaging. COMPARISON: 2016 through 2023 FINDINGS: The breasts are composed of scattered fibroglandular densities, Breast Density category B. No suspicious masses or suspicious microcalcifications are seen. No skin thickening or abnormal axillary lymph nodes are seen. There has been no significant change from prior exams. IMPRESSION: BI-RADS Category 1, Negative mammogram Yearly screening mammography is recommended. Breast Density - Category B, scattered fibroglandular densities. A negative radiographic report should not delay biopsy if a dominant or clinically suspicious mass is present. Up to ten percent of cancers are not identified on mammography. A negative report may reinforce clinical impression. Adenosis and dense breasts may obscure an underlying neoplasm. False positive reports average 6 to 10%. Patient will receive a letter notifying them of these results.
== END 2025-01-16 01:36 ==
LOC: DI 01:16
PROVIDERS: PCP Nurse Practitioner Family; Visit Provider Nurse Practitioner Family
DX: Z78.0 Asymptomatic menopausal state (principal); Z12.31 Encounter for screening mammogram for malignant neoplasm of breast; Z13.820 Encounter for screening for osteoporosis
CPT/HCPCS: 77063; 77067; 77080

== ENCOUNTER → 2025-01-30 08:43 | Outpatient (BNVA) | payer MEDICARE, SELFPAY | PROVIDERS: PCP Nurse Practitioner Family; Referring Provider Nurse Practitioner Family; Visit Provider Physical Therapy Assistant | DX: Z12.11 Encounter for screening for malignant neoplasm of colon (principal); Z86.0101 Personal history of adenomatous and serrated colon polyps ==

== ENCOUNTER 2025-02-11 12:32 | Day surgery (SDC) | payer MEDICARE, SELFPAY ==
[2025-02-11 12:52] VITALS: BP 138/80; PULSE 92; RESP 20; TEMP 36.8; O2SAT 96
[2025-02-11] MEDS: Lactated Ringers 1,000 ML 80 ML IV (13:04)
--- NOTE | 2025-02-11 13:45 | COLE_ITS ---
Date of service: 02/11/25 Time of Service: 13:45 Colonoscopy Report Procedure Description: PROCEDURES PERFORMED: 1. Colonoscopy PREOPERATIVE DIAGNOSIS: Surveillance colonoscopy, colon polyps POSTOPERATIVE DIAGNOSIS: Grade 2 internal hemorrhoids SURGEON: Shobha Martinez MD INDICATION FOR PROCEDURE: the patient is a 64-year-old woman who has had polyps on prior colonoscopies. Her last colonoscopy was normal. An isolated first cousin had colon cancer in young age. FINDINGS: Normal terminal ileum. No polyps. No inflammation anywhere. No obvious diverticuli. Grade 2 internal hemorrhoids. SURVEILLANCE interval/FOLLOW-UP: Repeat another colonoscopy in 10 years SPECIMENS: None EBL: Minimal COMPLICATIONS: None QUALITY of prep: Excellent Procedure in detail: The patient gave written consent and was in agreement with the indications, the potential risks as well as the benefits of the procedure. They were taken to the endoscopy suite and laid in the left lateral decubitus position. A timeout was performed and anesthesia was administered which was han erated well. I started the procedure. Digital rectal and visual examination was performed and grossly within normal limits. A well-lubricated flexible colonoscope was then introduced and passed without any notable difficulty all the way to the cecum identified by the ileocecal valve and the appendiceal orifice. The terminal was intubated and looked normal. The scope was then slowly withdrawn with the above-noted findings. The patient tolerated the procedure well and was taken to the PACU in hemodynamically stable condition.
--- NOTE | 2025-02-11 13:46 | W.PM.DSUDISC ---
Date of service: 02/11/25 Discharge Plan Disposition Patient Disposition: Home Condition: Good Discharge Details Attending Provider: Cayetano Martinez Primary Care Provider: Rosio Menezes Home Meds and New Rx's Prescriptions: No Action bisacodyl [Dulcolax (bisacodyl)] 5 mg tablet,delayed release (DR/EC) 5 mg PO ONCE Qty: 4 0RF Rx Instructions: Take per colonoscopy instructions provided by ordering providers office polyethylene glycol 3350 17 gram/dose powder 17 g PO ONCE Qty: 238 0RF Rx Instructions: Take per colonoscopy instructions provided by ordering providers office CENTRUM TABLET 1 EACH tablet 1 ea PO DAILY Rx Instructions: WITH IRON melatonin 10 MG tablet 10 mg PO DAILY Fish Oil 1 EACH capsule 2 ea PO DAILY cholecalciferol (vitamin D3) [Vitamin D3] 2,000 UNIT capsule 4,000 unit PO DAILY hydrochlorothiazide 12.5 mg tablet 12.5 mg PO DAILY Qty: 90 4RF levothyroxine 88 mcg tablet 88 mcg PO DAILY Qty: 90 4RF lisinopril 10 mg tablet 10 mg PO DAILY Qty: 90 4RF metoprolol succinate 50 mg tablet extended release 24 hr 50 mg PO DAILY Qty: 90 4RF fluticasone propionate 50 mcg/actuation spray,suspension 1 spray NS DAILY Qty: 3 3RF fluoxetine 40 mg capsule 40 mg PO DAILY Qty: 90 3RF amoxicillin 500 mg capsule 500 mg PO ONCE Qty: 12 1RF Rx Instructions: 4 PILLS AT ONCE. acetaminophen [Tylenol] 325 MG tablet 650 mg PO Q4H PRN PRN0RF Discharge Instructions Additional Instructions: FINDINGS: No new polyps. No Inflammation anywhere. Your colon appears very healthy. Grade 2 internal hemorrhoid disease is present which is extremely common, benign and nothing needs to be done about it. Your next colonoscopy should be in 10 years. Stand Alone Forms: Anesthesia Discharge Inst., Colonoscopy Post Instructions, Gregg Hobbs ([facility]) Activity:: Activity as Tolerated Diet:: As Tolerated Discharge Orders Discharge Orders: Discharge Order (Routine); Ordered 02/11/25 Ordered By: Cayetano Martinez
--- NOTE | 2025-02-11 13:47 | ANES.PREOP_ITS ---
General Info Date of Service Date Performed: 02/11/25 Height: 5 ft 1 in Weight: 136.5 kg Body Mass Index (BMI): 56.8 Surgical Procedure: Operation Date: 02/11/25 12:50 Proposed Procedure Side Surgeon alexandru Martinez MD Meds Allergies and Home Medications Allergies Allergy/AdvReac Type Severity Reaction Status Date / Time No Known Allergies Allergy Verified 02/10/25 12:42 Home Medication ?Medication ?Instructions ?Recorded Centrum Tablet 1 ea PO DAILY 04/15/13 melatonin 10 mg tablet 10 mg PO DAILY 04/18/16 acetaminophen 325 mg tablet 650 mg (2 x 325 mg) PO Q4H PRN PRN 11/01/16 (Tylenol) cholecalciferol (vitamin D3) 50 4,000 unit PO DAILY 07/31/17 mcg (2,000 unit) capsule (Vitamin D3) omega-3 fatty acids-fish oil 340 2 ea PO DAILY 07/31/17 mg-1,000 mg capsule (Fish Oil) hydrochlorothiazide 12.5 mg tablet 12.5 mg PO DAILY #90 tab-caps 05/04/24 levothyroxine 88 mcg tablet 88 mcg PO DAILY #90 tab-caps 05/04/24 lisinopril 10 mg tablet 10 mg PO DAILY #90 tab-caps 05/04/24 metoprolol succinate 50 mg 50 mg PO DAILY #90 tabs 05/04/24 tablet,extended release 24 hr fluoxetine 40 mg capsule 40 mg PO DAILY #90 caps 07/08/24 fluticasone propionate 50 1 spray NS DAILY #3 grams 07/08/24 mcg/actuation nasal spray,suspension amoxicillin 500 mg capsule 500 mg PO ONCE #12 caps 09/12/24 bisacodyl 5 mg tablet,delayed 5 mg PO ONCE #4 tabs 01/30/25 release (Dulcolax (bisacodyl)) polyethylene glycol 3350 17 17 g PO ONCE #238 grams 01/30/25 gram/dose oral powder Current Visit Medications: Current Medications Generic Name Dose Route Start Last Admin Trade Name Freq PRN Reason Stop Dose Admin Ringer's Solution 1,000 mls @ 80 mls/hr 02/11/25 06:00 02/11/25 13:04 IV 02/11/25 23:59 80 mls/hr INFUSION GISELLE Administration IV Miscellaneous Supplies 1 each 02/11/25 06:00 Iv Access IV 02/11/25 23:59 DIRECTED GISELLE Sodium Chloride 0 ml 02/11/25 06:00 Normal Saline Flush 10 Ml Syr IV 02/11/25 23:59 PRN PRN Sodium Chloride 0 ml 02/11/25 06:00 Normal Saline 10 Ml Vial IJ 02/11/25 23:59 DIRECTED PRN Sterile Water 0 ml 02/11/25 06:00 Water,Injection,Sterile 10 Ml Vial IJ 02/11/25 23:59 DIRECTED PRN PFSH Active Problems Active Problems: Problem Status Onset Code Prediabetes Acute R73.03 Asymmetrical sensorineural hearing loss Acute H90.3 Depressed Chronic F32.9 Sensorineural hearing loss of both ears Acute H90.3 Impairment of speech discrimination Acute H93.299 Trochanteric bursitis, left hip Acute M70.62 Obstructive sleep apnea Chronic G47.33 Tubular adenoma of colon Acute 10/19/15 D12.6 Obesity Chronic E66.9 Hypothyroidism Chronic 04/22/13 E03.9 Essential hypertension Chronic 10/11/13 I10 Medical History Medical History [place] (stress urinary incontinence, female) [place] (hard of hearing) History of colon polyps Tendinitis of left rotator cuff injected 11/23/2018 Carpal tunnel syndrome on both sides (05/27/15) surgery left 2015 Surgical History Surgical History S/p bilateral myringotomy with tube placement History of tympanoplasty of left ear 1978-revision History of total right knee replacement (TKR) (~04/2014) History of total left knee replacement (TKR) (~04/2013) Tobacco Smoking/Tobacco Use Status: Never Passive smoking exposure: No Second hand exposure: No Alcohol Alcohol Intake: never Substance Use Substance use: Never Substance use type: does not use Vital Signs and Lab Results Vital Signs Most Recent Vital Signs in EMR: Most Recent Vital Signs Temp Pulse Resp BP Pulse Ox 36.8 C 92 H 20 138/80 96 02/11/25 12:52 02/11/25 12:52 02/11/25 12:52 02/11/25 12:52 02/11/25 12:52 Lab Results Blood Type / Crossmatch: No Data to Display Complete Blood Count: No Data to Display Complete Metabolic Panel: No Data to Display Liver Function Panel: No Data to Display Coagulation Panel: No Data to Display Cardiac Panel: No Data to Display Arterial Blood Gas: No Data to Display Venous Blood Gas: No Data to Display Pancreas Panel: No Data to Display Thyroid Panel: No Data to Display Infectious Disease: No Data to Display Blood Cultures: No Data to Display Toxicology Panel: No Data to Display Anesthesia Assessment and Plan Anesthesia History Personal History: No History of Anesthesia Complications Family History: No Family History of Anesthesia Complications Exercise Tolerance Exercise Tolerance: Metabolic Equivalents<4 Pertinent Negatives Pertinent Negatives: No Symptoms of GERD, No Major Cardiovascular Symptoms or Complaints and No Major Pulmonary Symptoms or Complaints Cardiac & Pulmonary Exam Cardiac Exam: Normal S1/S2 Heart Sounds Pulmonary Exam: Clear Bilateral Breath Sounds Implantable Cardiac Device Does patient have a Pacemaker or an ICD?: No Airway Exam Known Difficult Airway: No Mallampati Class: 3 Mouth Opening: Normal (> 3cm) Thyromental Distance: Greater than 3 cm Neck Range of Motion: Full ROM Neck Circumference: Thick Teeth Condition: Normal Dentition ASA Classification ASA Score: ASA 3 Emergency Case?: No NPO Status NPO Status: NPO Clears >2 hours, Solids >8 hours Anesthesia Plan Resuscitation Status: Full Code Anesthesia Technique: General Anesthesia Airway Planned: Natural Airway Monitors Used: Standard Monitors
[2025-02-11 13:50] VITALS: BMI 56.8
[2025-02-11 14:22] VITALS: BP 113/63; PULSE 82; RESP 16; TEMP 36.5; O2SAT 95
--- NOTE | 2025-02-11 14:32 | W.ANESPOSTOP ---
Postoperative Evaluation Date, Time and Location Date Performed: 02/11/25 Time Performed: 14:32 Patient Location: Day Surgery Unit Vital Signs Most Recent Imported Vital Signs: Most Recent Vital Signs Temp Pulse Resp BP Pulse Ox 36.5 C 82 16 113/63 95 02/11/25 14:22 02/11/25 14:22 02/11/25 14:22 02/11/25 14:22 02/11/25 14:22 Pain Score Most Recent Pain Score: Most Recent Pain Score Pain Level 0 02/11/25 12:52 Assessment Mental Status: Awake (Alert & Oriented to Patient Baseline) Airway and Respiratory Function: Patent airway with normal (patient baseline) respiratory exam Cardiovascular Function: Hemodynamically Stable Hydration Status: Adequately Hydrated Nausea & Vomiting: No Nausea or Vomiting Pain: Pt. Denies Any Pain Peripheral Nerve Block: Patient did not receive a nerve block
[2025-02-11 14:42] VITALS: BP 116/61; PULSE 81; RESP 16; TEMP 36.5; O2SAT 96
== END 2025-02-11 15:02 | disposition home or self-care (01) ==
LOC: SUR 12:32
PROVIDERS: PCP Nurse Practitioner Family; Visit Provider Student in an Organized Health Care Education/Training Program
PROC: 0DJD8ZZ Inspection of Lower Intestinal Tract, Via Natural or Artificial Opening Endoscopic (ICD-10-PCS; CPT 45378; principal; 2025-02-11 12:45)
DX: Z12.11 Encounter for screening for malignant neoplasm of colon (principal); K63.5 Polyp of colon; K64.1 Second degree hemorrhoids; Z86.0100 Personal history of colon polyps, unspecified
CPT/HCPCS: G0121; J2003; J2405; J2704

== ENCOUNTER 2025-05-13 03:13 | Outpatient (CLI) | payer MEDICARE, SELFPAY ==
--- NOTE | 2025-05-13 06:45 | DI.MRI_ITS ---
Exam(s) MR IAC BRAIN WO/W EXAM: MR IAC BRAIN WO/W CLINICAL HISTORY: ? central process,left ear,ASYMMETRIC SN HEARING LOSS,IMPAIRMENT OF SPEECH. TECHNIQUE: Multiplanar multisequence MRI of the brain and internal auditory canals was performed. CONTRAST MATERIAL: IV Contrast: 20 mL of Dotarem contrast administered. COMPARISON: CT CT HEAD WO from 08/23/2024 FINDINGS: VENTRICLES AND EXTRA AXIAL SPACES: Normal in size and morphology for the patient's age. HEMORRHAGE: None. CEREBRAL PARENCHYMA: No focus of restricted diffusion to suggest acute infarct. No space-occupying lesion identified. There are T2 hyperintense lesions seen within the white matter on the FLAIR and T2 weighted images consistent with chronic microvascular ischemic disease. There are 2 hyperintense foci perpendicularly oriented to the lateral ventricles. These areas show no enhancement. MIDLINE SHIFT: None. BRAINSTEM/CEREBELLUM: Normal. CALVARIUM: Normal. ENHANCEMENT: No suspicious enhancement identified. VISUALIZED PARANASAL SINUSES/MASTOIDS: Clear. [place]: Normal flow void. PITUITARY GLAND: There is a round well-circumscribed T1 and T2 hyperintense 0.9 x 0.9 cm nodule within the pituitary bed. It remains hyperintense on the postcontrast images. IAC/CP ANGLE: The internal auditory canals are within normal limits. The cerebellar pontine angles are unremarkable. No enhancing lesions are seen. Visualized portion of the facial nerves appear within normal limits. OTHER FINDINGS: None. IMPRESSION: 1. No evidence of a mass or enhancing lesion involving the internal auditory canals or cerebellopontine angles. 2. 0.9 cm T1 and T2 hyperintense well-circumscribed nodule in the pituitary gland. Differential considerations include Rathke's cleft cyst, cystic microadenoma, craniopharyngioma or epidermoid cyst. A follow-up examination in 3-6 months to document stability is recommended. 3. White matter hyperintense T2 lesions on the FLAIR and T2 weighted images including 2 lesions which are perpendicularly oriented to the lateral ventricles. None of these show enhancement. While these may represent chronic microvascular ischemic disease, demyelinating processes including MS should be considered. DATA REPOSITORY:
[2025-05-13] MEDS: Gadoterate meglumine 20 ML SYRINGE IVP (08:31)
[2025-05-13] MEDS: Normal Saline Flush 10 ML SYR IVP (08:32)
== END 2025-05-13 03:33 ==
LOC: DI 03:13
PROVIDERS: PCP Nurse Practitioner Family; Visit Provider Otolaryngology
DX: H90.3 Sensorineural hearing loss, bilateral (principal); R93.89 Abnormal findings on diagnostic imaging of other specified body structures
CPT/HCPCS: 70553